=== PATIENT | female | born 1965 | race Two or more races ===

== ENCOUNTER 2017-04-18 19:15 | Inpatient (IN) | payer MEDICAID ==
[~2017-04-18] VITALS: Ht 167.6 cm; Wt 82.3 kg
[~2017-04-18 19:15] MED LIST: GABA-497 PO; GLIP-116 PO; LEVAAER4 IN; LEVO100T8 PO; METF-370 PO
[2017-04-18 20:49] LABS: Eosinophils # (auto) 0.1 uL; Hemoglobin 10.8 g/dL (12.2-16.2); Mean Platelet Volume 7.3 fL (6.9-10.8); Monocytes # (auto) 0.5 uL
[2017-04-18 20:57] LABS: Basophils # (auto) 0.1 uL; Basophils % (auto) 0.7 % (0.0-2.0); Eosinophils % (auto) 0.7 % (0.0-7.0); Hematocrit 33.4 % (36.0-46.0); Lymphocytes # (auto) 1.6 uL; Lymphocytes % (auto) 20.6 % (10.0-50.0); Mean Corpuscular Hemoglobin 25.3 pg (28.0-32.0); Mean Corpuscular Hgb Conc. 32.2 g/dL (32.0-36.0); Mean Corpuscular Volume 78.6 fL (80.0-100.0); Monocytes % (auto) 6.6 % (0.0-12.0); Neutrophils # (auto) 5.5 uL; Neutrophils % (auto) 71.4 % (37.0-80.0); Platelet Count (auto) 374 10^3/uL (140-450); Red Cell Distribution Width 14.7 % (11.8-14.3); White Blood Cell 7.7 10^3/uL (4.4-10.8)
[2017-04-18 21:03] LABS: Albumin 3.6 g/dL (3.4-5.0); Anion Gap 11 (5-15); BUN/Creatinine Ratio 25.7; Blood Urea Nitrogen 19 mg/dL (7-18); Carbon Dioxide 28 mmol/L (21-32); Chloride 102 mmol/L (98-107); GFR African American 107 mL/min; GFR Non-African American 89 mL/min; Glucose 89 mg/dL (74-106); Magnesium 2.1 mg/dL (1.6-2.6); Potassium 3.7 mmol/L (3.5-5.1); Sodium 141 mmol/L (136-145)
[2017-04-18 21:08] LABS: Alkaline Phosphatase 132 U/L (45-117); Aspartate Aminotransferase 38 U/L (15-37); Bilirubin, Total 0.3 mg/dL (0.2-1.0); Total Protein 7.9 g/dL (6.4-8.2)
[2017-04-18 21:31] LABS: Calcium 5.3 mg/dL (8.5-10.1)
[2017-04-19 00:14] LABS: INR 1.04 (0.9-1.15); Prothrombin Time 11.3 sec (9.37-12.3)
[2017-04-19] MEDS ORDERED: ACETAMINOPHEN 500 MG TAB PO PRN (04:45)
[2017-04-19] MEDS ORDERED: MORPHINE SULF INJ 2 MG/ML SYRINGE 1ML IV PRN (04:45)
[2017-04-19] MEDS ORDERED: NITROGLYCERIN 0.4 MG SL TAB SL PRN (04:45)
[2017-04-19] MEDS ORDERED: CALCIUM GLUC 4.65meq/50ml D5AE 50 ML IV ONE ×2 (04:45→07:15)
[2017-04-19] MEDS ORDERED: DEXTROSE (50%) 50ML SYRG IV PRN (04:45)
[2017-04-19] MEDS ORDERED: HYDROcodone-ACET 5/325MG TAB PO PRN (04:45)
[2017-04-19] MEDS ORDERED: ONDANSETRON HCL 4 MG/2 ML VIAL IV PRN (05:45)
[2017-04-19 06:01] LABS: Basophils # (auto) 0.1 uL; Basophils % (auto) 0.8 % (0.0-2.0); Eosinophils # (auto) 0 uL; Eosinophils % (auto) 0.6 % (0.0-7.0); Hematocrit 30.4 % (36.0-46.0); Hemoglobin 10.3 g/dL (12.2-16.2); Lymphocytes % (auto) 27.9 % (10.0-50.0); Mean Corpuscular Hemoglobin 26.6 pg (28.0-32.0); Mean Corpuscular Hgb Conc. 33.9 g/dL (32.0-36.0); Mean Corpuscular Volume 78.5 fL (80.0-100.0); Mean Platelet Volume 7.1 fL (6.9-10.8); Monocytes # (auto) 0.5 uL; Monocytes % (auto) 7.6 % (0.0-12.0); Neutrophils # (auto) 4.4 uL; Neutrophils % (auto) 63.1 % (37.0-80.0); Platelet Count (auto) 313 10^3/uL (140-450); Red Cell Distribution Width 14.9 % (11.8-14.3)
[2017-04-19] MEDS: ACCU-CHEK COMFORT CURVE STRIP VI SCH ×4 (06:26→21:20)
[2017-04-19 06:29] LABS: Albumin 3.2 g/dL (3.4-5.0); BUN/Creatinine Ratio 22.4; Bilirubin, Total 0.6 mg/dL (0.2-1.0); Potassium 3.7 mmol/L (3.5-5.1); Total Protein 7.4 g/dL (6.4-8.2)
[2017-04-19] MEDS: LEVOTHYROXINE SODIUM 100 MCG TAB PO SCH (06:37)
[2017-04-19] MEDS: InsuLIN REG 1unit/0.01ml Soln (100units/ml) SC SCH ×4 (06:37→21:20)
[2017-04-19 07:03] LABS: Calcium 5.5 mg/dL (8.5-10.1)
[2017-04-19] MEDS: GABAPENTIN 300 MG CAP PO SCH (09:49)
[2017-04-19] MEDS ORDERED: LORazepam 2MG/ML-1ML VIAL IV PRN (12:00)
[2017-04-19] MEDS: CALCIUM CARB 500 MG CHEW TAB PO SCH ×2 (13:17→17:52)
[2017-04-19] MEDS: Boost Glucose Control 8 Ounces PO SCH ×3 (13:17→18:33)
[2017-04-19 16:56] VITALS: BP 141/66
[2017-04-19 20:00] LABS: Urine RBC None Seen /hpf (0 - 4)
[2017-04-19 20:14] LABS: Urine Bilirubin Negative (Negative); Urine Blood Negative /uL (Negative); Urine Color Yellow (Yellow); Urine Glucose 1+ mg/dL (Normal); Urine Ketone Negative (Negative); Urine Mucus FEW (None Seen); Urine Nitrite Negative (Negative); Urine Squamous Epithelial Cell FEW /hpf (<5); Urine Urobilinogen Normal (Negative)
[2017-04-19 22:00] VITALS: BP 134/73
[2017-04-20 05:00] VITALS: BP 144/85
[2017-04-20 05:39] LABS: Basophils # (auto) 0 uL; Basophils % (auto) 0.7 % (0.0-2.0); Eosinophils # (auto) 0.1 uL; Eosinophils % (auto) 2.1 % (0.0-7.0); Hematocrit 33.3 % (36.0-46.0); Lymphocytes % (auto) 36.5 % (10.0-50.0); Mean Corpuscular Hemoglobin 25.9 pg (28.0-32.0); Mean Corpuscular Hgb Conc. 32.9 g/dL (32.0-36.0); Mean Corpuscular Volume 78.6 fL (80.0-100.0); Mean Platelet Volume 7.1 fL (6.9-10.8); Monocytes # (auto) 0.4 uL; Neutrophils # (auto) 2.9 uL; Neutrophils % (auto) 52.7 % (37.0-80.0); Platelet Count (auto) 332 10^3/uL (140-450); Red Cell Distribution Width 14.7 % (11.8-14.3); White Blood Cell 5.5 10^3/uL (4.4-10.8)
[2017-04-20 06:06] LABS: Albumin 3.2 g/dL (3.4-5.0); BUN/Creatinine Ratio 21.2; Bilirubin, Total 0.7 mg/dL (0.2-1.0); Potassium 4.1 mmol/L (3.5-5.1); Total Protein 7.7 g/dL (6.4-8.2)
[2017-04-20] MEDS: LEVOTHYROXINE SODIUM 100 MCG TAB PO SCH (06:08)
[2017-04-20] MEDS: ACCU-CHEK COMFORT CURVE STRIP VI SCH ×4 (06:08→22:00)
[2017-04-20] MEDS: InsuLIN REG 1unit/0.01ml Soln (100units/ml) SC SCH ×3 (06:09→17:05)
[2017-04-20 06:13] LABS: Calcium 5.4 mg/dL (8.5-10.1)
[2017-04-20] MEDS ORDERED: CALCIUM GLUC 4.65meq/50ml D5AE 50 ML IV ONE ×2 (06:45→08:00)
[2017-04-20 07:24] VITALS: BP 121/49
[2017-04-20] MEDS: Boost Glucose Control 8 Ounces PO SCH ×3 (08:59→17:29)
[2017-04-20] MEDS: CALCIUM CARB 500 MG CHEW TAB PO SCH ×3 (09:05→17:29)
[2017-04-20] MEDS: GABAPENTIN 300 MG CAP PO SCH (09:48)
[2017-04-20 11:33] VITALS: BP 146/63
[2017-04-20] MEDS ORDERED: DEXTROSE (50%) 50ML SYRG IV PRN (12:15)
[2017-04-20 16:28] VITALS: BP 143/61
[2017-04-20] MEDS: metFORMIN HYDROCHLORIDE 500 MG TAB PO SCH (17:29)
[2017-04-20] MEDS: glipiZIDE 5 MG TAB PO SCH (17:30)
[2017-04-20 22:00] VITALS: BP 138/80
[2017-04-20] MEDS ORDERED: InsuLIN REG 1unit/0.01ml Soln (100units/ml) SC SCH (22:00)
[2017-04-21 05:00] VITALS: BP 127/65
[2017-04-21] MEDS: ACCU-CHEK COMFORT CURVE STRIP VI SCH ×2 (06:23→13:00)
[2017-04-21] MEDS: glipiZIDE 5 MG TAB PO SCH (06:31)
[2017-04-21] MEDS: InsuLIN REG 1unit/0.01ml Soln (100units/ml) SC SCH ×2 (06:32→13:00)
[2017-04-21] MEDS ORDERED: INSULIN DETEMIR(LEVEMIR) 1unit/0.01ml Soln (100units/ml) SC SCH (07:00)
[2017-04-21] MEDS ORDERED: LEVOTHYROXINE SODIUM 50 MCG TAB PO SCH (07:00)
[2017-04-21 07:29] VITALS: BP 140/70
[2017-04-21] MEDS: metFORMIN HYDROCHLORIDE 500 MG TAB PO SCH (07:30)
[2017-04-21] MEDS: Boost Glucose Control 8 Ounces PO SCH ×2 (07:30→12:02)
[2017-04-21] MEDS: CALCIUM CARB 500 MG CHEW TAB PO SCH ×2 (07:31→12:02)
[2017-04-21] MEDS: GABAPENTIN 300 MG CAP PO SCH (10:25)
[2017-04-21 12:39] VITALS: BP 157/83
== END 2017-04-21 14:28 | disposition home or self-care (01) | DRG 53 ==
LOC: EDBD 19:15 → ER 19:21 → TELE 19:22 → TELE-E-ADS 04-19 14:03 → TELE-CENTR 04-19 16:48
PROVIDERS: ADMIT Nurse Practitioner Family; ATTEND Internal Medicine Pulmonary Disease
DX: G40.89 Other seizures (principal); E44.0 Moderate protein-calorie malnutrition; E83.51 Hypocalcemia; D64.9 Anemia, unspecified; E11.9 Type 2 diabetes mellitus without complications; I10 Essential (primary) hypertension; E03.9 Hypothyroidism, unspecified; J45.909 Unspecified asthma, uncomplicated; E87.6 Hypokalemia; Z79.84 Long term (current) use of oral hypoglycemic drugs; Z79.899 Other long term (current) drug therapy; Z68.29 Body mass index [BMI] 29.0-29.9, adult; Z88.0 Allergy status to penicillin
CPT/HCPCS: 36415; 70450; 71010; 80053; 80307; 80320; 81001; 82330; 82962; 83036; 83735; 83970; 84443; 84484; 84702; 85025; 85610; 93005; J0610; J1815

== ENCOUNTER 2018-01-16 22:49 | Emergency (ER) | payer MEDICAID ==
[~2018-01-16] VITALS: Ht 162.6 cm; Wt 83.9 kg
[~2018-01-16 22:49] MED LIST changes: -GABA-497 PO; +GABA300C10 PO
[2018-01-16 23:02] VITALS: BP 148/78
[2018-01-16 23:21] LABS: Basophils # (auto) 0.1 uL; Basophils % (auto) 0.8 % (0.0-2.0); Eosinophils # (auto) 0.1 uL; Eosinophils % (auto) 1.4 % (0.0-7.0); Hemoglobin 11.2 g/dL (12.2-16.2); Lymphocytes # (auto) 1.6 uL; Lymphocytes % (auto) 26.6 % (10.0-50.0); Mean Corpuscular Hemoglobin 28.1 pg (28.0-32.0); Mean Corpuscular Hgb Conc. 33.8 g/dL (32.0-36.0); Mean Corpuscular Volume 83.2 fL (80.0-100.0); Monocytes # (auto) 0.5 uL; Monocytes % (auto) 7.5 % (0.0-12.0); Neutrophils # (auto) 3.9 uL; Neutrophils % (auto) 63.7 % (37.0-80.0); Nucleated Red Blood Cells % 0.1 %; Platelet Count (auto) 276 10^3/uL (140-450); Red Blood Cells 3.97 10^6/uL (4.0-5.20); Red Cell Distribution Width 15.1 % (11.8-14.3); White Blood Cell 6.2 10^3/uL (4.4-10.8)
[2018-01-17 03:35] LABS: Alanine Aminotransferase 25 U/L (13-56); Albumin 3.1 g/dL (3.4-5.0); Alkaline Phosphatase 102 U/L (45-117); Anion Gap 15 (5-15); Aspartate Aminotransferase 29 U/L (15-37); BUN/Creatinine Ratio 20.2; Bilirubin, Total 0.4 mg/dL (0.2-1.0); Blood Urea Nitrogen 17 mg/dL (7-18); Carbon Dioxide 24 mmol/L (21-32); Chloride 100 mmol/L (98-107); GFR African American 92 mL/min; GFR Non-African American 76 mL/min; Glucose 258 mg/dL (74-106); INR 1.04 (0.9-1.15); Partial Thromboplastin Time 28.9 sec (23.78-33.04); Potassium 3.7 mmol/L (3.5-5.1); Prothrombin Time 11.1 sec (9.27-12.13); Sodium 139 mmol/L (136-145); Total Protein 7.2 g/dL (6.4-8.2)
[2018-01-17 05:00] LABS: Calcium 5.2 mg/dL (8.5-10.1)
== END 2018-01-17 01:55 | disposition left against medical advice (07) ==
LOC: EDBD 22:49 → ER 22:55
DX: R51 Headache (principal); R42 Dizziness and giddiness; Z53.21 Procedure and treatment not carried out due to patient leaving prior to being seen by health care provider
CPT/HCPCS: 36415; 70450; 80053; 84484; 85025; 85610; 85730; 93005